=== PATIENT | female | born 1980 | race African-American/Black ===

== ENCOUNTER 2017-02-27 13:00 | Inpatient (IN) | payer OTHER ==
[~2017-02-27] VITALS: Ht 170.2 cm; Wt 65.3 kg
--- NOTE | ~2017-02-27 | PA ---
Unit #: [id number] #: [id number] Patient: UZMA DARLING [id number] [facility] [address] [place] [address] [id number] MR#: [id number] NAME: UZMA DARLING. ROOM: P132 Age: 37 Sex: F Admission Date: 02/27/2017 : 1980 Date of Assessment: 02/27/2017 Attending Physician: Lew Gao M.D. Admitting Physician: Lew Gao M.D. Primary Care Physician: Generic Doctor Not In System PSYCHIATRIC ASSESSMENT DATE OF SERVICE 02/27/2017. IDENTIFYING DATA Ms. Darling is a 37-year-old female, who is a resident of [place], [place], and was self-referred to the hospital on a voluntary basis. CHIEF COMPLAINT "I just keep thinking about suicide." HISTORY OF PRESENT ILLNESS Ms. Darling is a 37-year-old female, who presented to the hospital reporting increasing depression and anxiety, "I keep thinking about suicide. I had a panic attack at work a couple of days ago. I have been on my medicines for bipolar for over a year." The patient reports smoking a ball of marijuana today and reports history of substance abuse and also reports using crystal meth, cocaine, heroin, methamphetamine, and last year pain pills, and ecstasy and she stated "I quit cold turkey a few months ago. I just think if I don't hurt myself that someone else is going to hurt by somebody else and just have the thought that I need to save my family." The patient does report increasing paranoid, depression, anxiety, agitation, irritability and reports having panic attack at her training and was asked to leave "they told me to get evaluated and they will hold the job for me." The patient reports a week ago she began training for [employer] and reports the highest level of education is high school diploma and does report increasing depression, anxiety, and feelings of hopelessness and was seen to be a danger to self and therefore recommendation for inpatient level of care for safety and stabilization was made and the patient was transferred to us. SUBSTANCE ABUSE HISTORY The patient reports history of cannabis, cocaine, acid, opioids, and methamphetamine abuse and reports that more recently cannabis has been her drug of choice and she has not used other drugs recently. PAST PSYCHIATRIC HISTORY The patient has had a history of psychiatric treatment at the [facility] as well as outpatient treatment. Review of the medical records indicate that she has been diagnosed and treated for bipolar disorder, but has been noncompliant with medication and as such, has been decompensating. Unit #: [id number] #: [id number] Patient: UZMA DARLING PAST MEDICAL HISTORY The patient's medical history is significant for hypertension. ALLERGIES No known medication allergies. PERSONAL AND SOCIAL HISTORY A 37-year-old female, who reports that she is and lives at home with her and has fairly decent social support system. MENTAL STATUS EXAMINATION Young female, who was casually dressed with fair personal hygiene, appears to be in no acute distress or discomfort. She was awake and alert on interaction with intact orientation to time, place, and person. Her mood was anxious and depressed with a congruent affect. Her speech was slow and restricted in content. Her thought processes were disorganized with some looseness of associations and flight of ideas and suicidal ideations. Her insight and judgment remain significantly impaired. DIAGNOSTIC IMPRESSION Psychiatric: Bipolar disorder, most recent episode depressed, recurrent, moderate, without psychotic features and cannabis abuse, moderate. Medical: Hypertension. Stressors: Moderate psychosocial stressors. TREATMENT PLAN 1. The patient has presented with a history of mood disorder and has been decompensating and will need inpatient hospitalization for safety and stabilization. We will start her back on her home medications. We will adjust the medications and monitor response. 2. Supportive therapy was provided to the patient. 3. Safe, structured, and nourishing environment will be provided. ESTIMATED LENGTH OF STAY 5 to 7 days. ABILITY TO HELP SELF Limited. WILLINGNESS TO HELP SELF The patient appears to be willing to help self. STRENGTHS 1. Communicative. 2. Cooperative. PROBLEMS 1. Chronic dysphoric symptoms. 2. Poor social support system. DISCHARGE CRITERIA This will be contingent upon the patient's ability to show resolution of her depression and anxiety and her ability to stay safe to herself, particularly after discharge from the hospital. Dictated by... Unit #: [id number] #: [id number] Patient: UZMA DARLING Tushar Russo/osman TD: 02/28/2017 17:02 JOB #: [id number] PSYCHIATRIC ASSESSMENT Page 1 of 1 X Lew Gao MD PSYCHIATRIC ASSESSMENT
--- NOTE | ~2017-02-27 | PN ---
Unit #: [id number] #: [id number] Patient: UZMA DARLING [id number] [facility] [address] [place] [address] [id number] I MR#: [id number] NAME: UZMA DARLING. ROOM: P132 Age: 37 Sex: F Admission Date: 02/27/2017 : 1980 Attending Physician: Lew Gao M.D. Admitting Physician: Lew Gao M.D. Primary Care Physician: Generic Doctor Not In System [facility] PROGRESS NOTES DATE OF SERVICE 03/01/2017 DISCUSSION Ms. Darling is a 37-year-old female who was seen today. Chart was reviewed and case was discussed with the staff. She has been anxious, withdrawn, and rather seclusive to herself. Meanwhile, she has been cooperative with treatment recommendations and has been taking the medications and tolerating them fairly well with no reported side effects. MENTAL STATUS EXAMINATION Young female who is casually dressed with fair personal hygiene, appears to be in no acute distress or discomfort. She was awake and alert with impaired attention and concentration. Her mood is anxious with congruent affect. Her speech is slow and restricted in content. Her thought processes were disorganized with some looseness of associations. Her insight and judgment remain fairly intact. TREATMENT PLAN 1. We will continue her on her current medications and treatment protocol. We will monitor her response to the medications and make further adjustments as needed. 2. We will continue to follow up. Dictated by... Lew Gao M.D. IAA/lidiag TD: 03/01/2017 11:30 JOB #: [id number] Unit #: [id number] #: [id number] Patient: UZMA DARLING [facility] PROGRESS NOTES Page 1 of 1 X Lew Gao MD PROGRESS NOTE
--- NOTE | ~2017-02-27 | HP ---
Unit #: [id number] #: [id number] Patient: UZMA DARLING [id number] [place] [address] [id number] MR#: [id number] NAME: UZMA DARLING. ROOM: P132 Age: 37 Sex: F Admission Date: 02/27/2017 : 1980 Attending Physician: Lew Gao M.D. Admitting Physician: Lew Gao M.D. Primary Care Physician: Generic Doctor Not In System HISTORY AND PHYSICAL HISTORY OF PRESENT ILLNESS Uzma is a 37-year-old female admitted to [address] [place] [address] with depression, anxiety and after verbalizing wanting to hurt herself. PAST MEDICAL HISTORY High blood pressure. PAST SURGICAL HISTORY Tubal ligation. ALLERGIES Sulfa (itching). SOCIAL HISTORY She does not smoke. Drinks alcohol on occasion. Has a history of methamphetamine use but denies anything in months. She also admits to using marijuana on occasion. FAMILY HISTORY Medically noncontributory. REVIEW OF SYSTEMS CONSTITUTIONAL: No fever or chills. HEENT: Denies any sore throat, ear pain or runny nose. CARDIOVASCULAR: Denies chest pain, irregular heart rhythm or palpitations. CHEST: Denies shortness of breath or cough. No hemoptysis. GASTROINTESTINAL: Denies nausea, vomiting, diarrhea or chronic constipation. ENDOCRINE: Denies history of increased thirst or urination. No recent significant weight loss or gain. GENITOURINARY: Denies dysuria, frequency, or hematuria. SKIN: Denies any rashes. HEMATOLOGIC: Denies history of increased bleeding or bruising. MUSCULOSKELETAL: Denies any hot, swollen joints. No generalized muscle pain. NEUROLOGIC: Denies problems with vision or speech. No frequent, severe headaches. No numbness, tingling or weakness in any extremities. Denies loss of bladder or bowel control. CURRENT MEDICATIONS 1. Abilify 10 mg q.h.s. 2. BuSpar 10 mg b.i.d. 3. Milk of Magnesia p.r.n. Unit #: [id number] #: [id number] Patient: UZMA DARLING 4. Maalox p.r.n. 5. Tylenol p.r.n. 6. Zestril 20 mg daily. PHYSICAL EXAMINATION GENERAL: Alert, well-nourished, in no apparent distress. VITAL SIGNS: Blood pressure 170/104, heart rate 78, respirations 16, temperature 98.6. WEIGHT: 144. HEIGHT: 5 feet 7 inches. SKIN: Warm and dry without rash or lesion. HEENT: Normocephalic. TMs not viewed. Oral and nasal passages clear. Conjunctivae clear. PERRLA. EOMs intact. NECK: Supple without lymphadenopathy or thyromegaly. HEART: Regular rate and rhythm without murmur. LUNGS: Clear. ABDOMEN: Soft, nontender. : Not done. EXTREMITIES: No evidence of cyanosis, clubbing or edema. Moves all without focal deficit. NEUROLOGICAL: Grossly within normal limits. Cranial Nerves: II: Visual rodas are intact. III, IV AND : Extraocular movements are intact. Pupils are equal, round and reactive to light. V: Facial sensation is grossly normal. VII: Facial movements and expression are normal. VIII: Auditory acuity grossly intact. IX, X: Uvula is midline. Phonation is normal. XI: Patient shrugs shoulders and turns head normally. XII: Tongue protrudes in the midline. Sensory and Motor Function: Sensory and motor sensation is grossly normal. Motor: moves all extremities well. Coordination: Gait is normal. Deep Tendon Reflexes: Intact. IMPRESSION Psychiatric admission. RECOMMENDATIONS PSYCHIATRIC: Per psychiatrist. MEDICAL: See no contraindication to participate in facility's activities. MEDICAL PROGNOSIS Good. MEDICAL CONDITION Stable. Dictated by... Shanique Dinero P.A.-C. for Tushar Nation/dion TD: 02/28/2017 16:29 JOB #: [id number] Unit #: [id number] #: [id number] Patient: UZMA DARLING HISTORY AND PHYSICAL Page 1 of 1 X Shanique Dinero HISTORY AND PHYSICAL
--- NOTE | ~2017-02-27 | PN ---
Unit #: [id number] #: [id number] Patient: UZMA DARLING [id number] [facility] [address] [place] [address] [id number] MR#: [id number] NAME: UZMA DARLING. ROOM: P132 Age: 37 Sex: F Admission Date: 02/27/2017 : 1980 Attending Physician: Lew Gao M.D. Admitting Physician: Lew Gao M.D. Primary Care Physician: Generic Doctor Not In System [facility] PROGRESS NOTES DATE 02/28/2017 DISCUSSION Ms. Darling is a 37-year-old female with mood disorder who was seen today and chart was reviewed and case was discussed with the staff. She was seen to be anxious, withdrawn rather disorganized and seclusive to herself. Meanwhile, she has not shown any agitation or aggression. Young female who was casually dressed with fair personal hygiene appears to be in no acute distress or discomfort. She was awake and alert with impaired attention and concentration. Her mood was anxious with a congruent affect. She denies any suicidal or homicidal ideation. Her insight and judgement remains slightly impaired. MENTAL STATUS EXAMINATION Middle-aged white female who was casually dressed with fair personal hygiene, appears to be in no acute distress or discomfort. She was awake and alert on interaction with intact orientation. Her mood was anxious with congruent affect. Her speech was slow and goal-directed. She denies any suicidal or homicidal ideations. Also, denies any auditory or visual hallucinations. Her insight and judgement remains slightly impaired. TREATMENT PLAN 1. We will continue her on her current medications and treatment protocol. We will monitor her response to the medication and make further adjustments as needed. 2. We will continue to follow up. Dictated by... Tushar Russo/caleb TD: 02/28/2017 21:58 JOB #: [id number] Unit #: [id number] #: [id number] Patient: UZMA DARLING [facility] PROGRESS NOTES Page 1 of 1 X Lew Gao MD PROGRESS NOTE
--- NOTE | ~2017-02-27 | DS ---
Unit #: [id number] #: [id number] Patient: [facility]ARLING [id number] [facility] [place] [address] [id number] MR#: [id number] NAME: UZMA DARLING. ROOM: P132 Age: 37 Sex: F Admission Date: 02/27/2017 : 1980 Discharge Date: 03/02/2017 Attending Physician: Lew Gao M.D. Primary Care Physician: Generic Doctor Not In System DISCHARGE SUMMARY IDENTIFYING DATA Ms. Darling is a 37-year-old female, who is a resident of [place], [place], and was self-referred to the hospital on voluntary basis. DISCHARGE DIAGNOSES Psychiatric: Bipolar disorder, most recent episode depressed, recurrent, moderate, without psychotic features; cannabis abuse, moderate. Medical: None. Stressors: Moderate psychosocial stressors. HISTORY OF PRESENT ILLNESS Please see initial psychiatric evaluation for details. PAST PSYCHIATRIC HISTORY Please see initial psychiatric evaluation for details. PAST MEDICAL HISTORY Please see initial psychiatric evaluation for details. HOSPITAL COURSE The patient was admitted to the adult psychiatric unit at [facility] and was oriented to the hospital environment. Routine p.r.n. medications were initiated, and she was started back on her home medication; however, due to her history of therapeutic response to Abilify and lack of compliance, she was considered to be a good candidate for Abilify Maintena as a long-acting monthly injection, and since she did not show any hypersensitivity to the molecule of aripiprazole, Abilify Maintena 400 mg intramuscular was initiated. She was able to receive first monthly dose while on the unit followed by which, recommendation was made for the patient to receive monthly dosing on an outpatient basis, and the patient was doing much better and was denying any suicidal ideations, intent, or plan, and was wanting to go home and was willing to continue treatment on an outpatient basis. DISCHARGE MEDICATIONS Abilify Maintena 400 mg intramuscular every 30 days. DISCHARGE CONDITION Stable. PROGNOSIS Fair. Unit #: [id number] #: [id number] Patient: UZMA DARLING Dictated by... Lew Gao M.D. IAA/modl TD: 03/03/2017 06:47 JOB #: [id number] DISCHARGE SUMMARY Page 1 of 1 X Lew Gao MD DISCHARGE SUMMARY
[2017-02-28 09:52] LABS: BASOPHIL# 0.1 X10e3 (0-0.3); EOSINOPHIL# 0.1 X10e3 (0-0.7); EOSINOPHIL% 0.5 % (0.0-7.0); HEMATOCRIT 37.8 % (35.0-45.0); HEMOGLOBIN 12.4 gm/dL (12.0-16.0); LYMPHOCYTE% 19.5 % (17.0-45.0); MEAN CELL VOLUME 83.9 FL (83-96); MEAN CORPUSCULAR HEMOGLOBIN 27.4 PG (28-34); MEAN CORPUSCULAR HGB CONC 32.7 g/dL (30-36); MEAN PLATELET VOLUME 8.8 FL (6.5-11.5); MONOCYTE# 0.5 X10e3 (0-1.0); MONOCYTE% 5.2 % (3.0-12.0); NEUTROPHIL# 7.5 X10e3 (1.5-7.1); NEUTROPHIL% 73.8 % (40-75); PLATELET COUNT 312 X10e3 (140-420); RED CELL DISTRIBUTION WIDTH 13.8 % (11.0-15.5); WHITE BLOOD COUNT 10.2 X10e3 (4.0-10.5)
[2017-02-28 10:01] LABS: DIFF IND NO
[2017-02-28 10:33] LABS: ALBUMIN SERUM 4.1 g/dL (3.5-5.0); BILIRUBIN,TOTAL 0.8 mg/dL (0.2-2.0); CALCIUM SERUM 9.4 mg/dL (8.4-10.2); CREATININE SERUM 0.5 mg/dL (0.6-1.4); GLOM FILT RATE Estimated 141.3 mL/min (>60); POTASSIUM 4.1 mmol/L (3.5-5.1)
== END 2017-03-02 11:53 | disposition home or self-care (01) | DRG 885 ==
LOC: P1S 16:24
PROVIDERS: Psychiatry & Neurology Psychiatry
DX: F31.32 Bipolar disorder, current episode depressed, moderate (principal); I10 Essential (primary) hypertension; F12.10 Cannabis abuse, uncomplicated; Z88.2 Allergy status to sulfonamides
CPT/HCPCS: 80053; 84703; 85025